=== PATIENT | male | born 1945 | race Caucasian/White ===

== ENCOUNTER 2016-12-08 16:44 | Emergency (ER) | payer OTHER ==
[2016-12-08 17:19] LABS: BASO % 0.5 % (0.2-1.2); EOS # 0.4 10_X3_uL (0.0-0.5); EOS % 6.3 % (0.8-7.0); GRAN # 3.7 10_X3_uL (1.8-5.4); GRAN % 56.8 % (34.0-67.9); HEMATOCRIT 40.2 % (40-51); HEMOGLOBIN 13.3 g/dL (13.7-17.5); LYMPH # 1.7 10_X3_uL (1.3-3.6); LYMPH % 26.6 % (21.8-53.1); MEAN CORPUSCULAR HEMOGLOBIN 32.4 pg (27.0-33.0); MEAN CORPUSCULAR HGB CONC 33.1 g/dL (32.0-36.0); MEAN CORPUSCULAR VOLUME 97.8 fL (79-92); MEAN PLATELET VOLUME 9.6 fl (7.5-11.5); MONO # 0.6 10_X3_uL (0.3-0.8); MONO % 9.8 % (5.3-12.2); PLATELET COUNT 222 x10_3/uL (163-337); RED BLOOD COUNT 4.11 x10_6/uL (4.6-6.1); RED CELL DISTRIBUTION WIDTH 13.7 % (11.6-14.4); WHITE BLOOD COUNT 6.5 x10_3/uL (4.2-9.1)
[2016-12-08 17:33] LABS: CREATININE 1.5 mg/dL (0.6-1.3); POTASSIUM 4.3 mmol/L (3.5-5.1)
== END 2016-12-08 20:17 | disposition home or self-care (01) ==
LOC: ER 16:44
PROVIDERS: General Practice
DX: R07.89 Other chest pain (principal); N28.9 Disorder of kidney and ureter, unspecified; R00.0 Tachycardia, unspecified; E66.01 Morbid (severe) obesity due to excess calories; Z86.73 Personal history of transient ischemic attack (TIA), and cerebral infarction without residual deficits; J60 Coalworker's pneumoconiosis; J44.9 Chronic obstructive pulmonary disease, unspecified; F41.9 Anxiety disorder, unspecified; E11.9 Type 2 diabetes mellitus without complications; I10 Essential (primary) hypertension; Z86.718 Personal history of other venous thrombosis and embolism; Z79.01 Long term (current) use of anticoagulants; Z88.0 Allergy status to penicillin; Z88.2 Allergy status to sulfonamides; Z88.5 Allergy status to narcotic agent; Z88.8 Allergy status to other drugs, medicaments and biological substances
CPT/HCPCS: 36415; 71010; 80048; 84443; 85025; 85379; 93005; 99284; 99285-25